=== PATIENT | female | born 1960 | race Caucasian/White ===

== ENCOUNTER 2017-07-11 14:09 | Emergency (ER) | payer BC ==
[2017-07-11 14:42] VITALS: BP 123/72
--- NOTE | 2017-07-11 16:36 | UC ---
Abdominal Pain Female HPI - HPI Summary HPI Summary: Patient presents with a past medical history of htn, hypercholesterolemia. She presents today with 6 day onset complaints of urinary uregency, frequency, and dysuria, with associated low back pain. She reports supra-public pain and cramping with urination. She states these symptoms are similiar to when she has had UTI. She denies fever,chills, flank pain, vomiting, diarrhea. - History of Current Complaint Chief Complaint: UCGU Stated Complaint: BURNING URINATION Time Seen by Provider: 07/11/17 16:03 Hx Obtained From: Patient Onset/Duration: Gradual Onset, Lasting Days Severity Initially: Moderate Severity Currently: Moderate Pain Intensity: 2 Location: Suprapubic Radiates: Yes Radiates to: Back Character: Cramping Aggravating Factor(s): Other: - urination Alleviating Factor(s): Spontaneous Resolution Associated Signs and Symptoms: Positive: Urinary Symptoms Simlar Episode/Dx as:: UTI Allergies/Adverse Reactions: Allergies Allergy/AdvReac Type Severity Reaction Status Date / Time MS Penicillins [Penicillins] Allergy Intermediate Hives Verified 07/07/16 10:50 MS Latex [Latex] Allergy Mild See Comment Verified 07/07/16 10:50 MS Sulfa Drugs [Sulfa Drugs] Allergy Mild Rash Verified 07/07/16 10:50 MS Codeine [Codeine] Allergy unsure Verified 07/07/16 10:50 MS Iodinated Contrast Media AdvReac Mild Nausea And Verified 07/07/16 10:50 [CONTRAST DYE] Vomiting Home Medications: Home Medications Metoprolol Tartrate TAB* [Lopressor TAB*] 25 mg PO DAILY 07/11/17 [History Confirmed 07/11/17] PMH/Surg Hx/FS Hx/Imm Hx Previously Healthy: Yes Endocrine History: Dyslipidemia Cardiovascular History: Hypertension - Surgical History Surgical History: Yes Surgery Procedure, Year, and Place: x 2, cholecystectomy, hernia repair-02/2012, partial hysterectomy, cancerous mass removed from left kidney - Family History Known Family History: Positive: Diabetes - Social History Occupation: Disabled Lives: With Family Alcohol Use: Rare Alcohol Amount: SOCIAL Substance Use Type: None Smoking Status (MU): Never Smoked Tobacco - Immunization History Most Recent Influenza Vaccination: 03/10/13 Most Recent Tetanus Shot: over 10 yrs Most Recent Pneumonia Vaccination: none Review of Systems Constitutional: Negative Skin: Negative Eyes: Negative ENT: Negative Respiratory: Negative Cardiovascular: Negative Gastrointestinal: Negative Genitourinary: Dysuria, Hematuria, Frequency, Urgency Motor: Negative Neurovascular: Negative Musculoskeletal: Negative Neurological: Negative Psychological: Negative Is Patient Immunocompromised?: No All Other Systems Reviewed And Are Negative: Yes Physical Exam Triage Information Reviewed: Yes Appearance: Well-Appearing Vital Signs: Initial Vital Signs Temp 97.4 F 07/11/17 14:35 Pulse 94 07/11/17 14:35 Resp 18 07/11/17 14:35 BP 123/72 07/11/17 14:35 Pulse Ox 96 07/11/17 14:35 Eye Exam: Normal ENT Exam: Normal Neck exam: Normal Neck: Positive: 1 Respiratory Exam: Normal Cardiovascular Exam: Normal Abdominal Exam: Normal Musculoskeletal Exam: Normal Neurological Exam: Normal Psychological Exam: Normal Skin Exam: Normal Abd Pain Female Course/Dx - Course Course Of Treatment: Patient presents with six day onset urinary complaints, UA was positive for UTI, patient was treated with Keflex 500 mg bid x 10 days. She was told that if her symptoms do not improve as anticipated she would need to follow up with her PCP. She verbalized understanding of and in agreement with the discharge plan. - Differential Dx/Diagnosis Differential Diagnosis: Urinary Tract Infection Provider Diagnoses: uti Discharge - Discharge Plan Condition: Stable Disposition: HOME Prescriptions: Cephalexin CAP* [Keflex CAP*] 500 mg PO BID #20 cap Patient Education Materials: Urinary Tract Infection in Women (DC) Referrals: Lisa Jane MD [Primary Care Provider] -
== END 2017-07-11 16:30 | disposition home or self-care (01) ==
LOC: UCEAST 14:09
DX: N39.0 Urinary tract infection, site not specified (principal); I10 Essential (primary) hypertension; E78.5 Hyperlipidemia, unspecified
CPT/HCPCS: 81003; 87077; 87086; 87186; 99212; G0463

== ENCOUNTER 2019-01-03 16:04 | Emergency (ER) | payer MEDICARE ==
[2019-01-03 16:13] VITALS: BP 156/87
--- NOTE | 2019-01-03 16:52 | UC ---
Head Injury HPI - HPI Summary HPI Summary: 58-year-old female who was getting out of her car and in order to avoid a tree branch she bent down and hit the left side of her forehead just at the hairline on the corner of her door. There is a small bruise present. There was no bleeding. She had no loss of consciousness but she just wanted it checked. Last tetanus is unknown. - History Of Current Complaint Chief Complaint: UCHeadInjury Stated Complaint: HEAD INJURY Time Seen by Provider: 01/03/19 16:24 Hx Obtained From: Patient ?: No Onset/Duration: Sudden Onset Severity Currently: Mild Severity Initially: Mild Pain Intensity: 3 Aggravating Factor(s): Nothing Alleviating Factor(s): Nothing Associated Signs And Symptoms: Positive: Negative - Allergies/Home Medications Allergies/Adverse Reactions: Allergies Allergy/AdvReac Type Severity Reaction Status Date / Time codeine Allergy Unknown Verified 01/03/19 16:19 Reaction Details Iodinated Contrast- Oral and Allergy Nausea And Verified 01/03/19 16:19 IV Dye Vomiting latex Allergy Rash And Verified 01/03/19 16:19 Itching Penicillins Allergy Hives Verified 01/03/19 16:19 Sulfa (Sulfonamide Allergy Rash Verified 01/03/19 16:19 Antibiotics) PMH/Surg Hx/FS Hx/Imm Hx Previously Healthy: Yes Cardiovascular History: Hypertension Cancer History: Other - Patient had a kidney mass removed not recently - Surgical History Surgical History: Yes Surgery Procedure, Year, and Place: x 2, cholecystectomy, hernia repair-02/2012, partial hysterectomy, cancerous mass removed from left kidney - Family History Known Family History: Positive: Diabetes - Social History Alcohol Use: Rare Alcohol Amount: SOCIAL Substance Use Type: None Smoking Status (MU): Never Smoked Tobacco - Immunization History Most Recent Influenza Vaccination: 03/10/13 Most Recent Tetanus Shot: over 10 yrs Most Recent Pneumonia Vaccination: none Review of Systems All Other Systems Reviewed And Are Negative: Yes Skin: Positive: Bruising - Extremely small flap bruise to the left forehead. Eyes: Positive: Other - Patient has ptosis to her right eyelid, which she has had for the past year. She states she has to make an appointment for surgery on the upper eyelid with her eye doctor. Her primary care provider has not researched the cause of the droopy lid. Is Patient Immunocompromised?: No Physical Exam Triage Information Reviewed: Yes Appearance: Well-Appearing, No Pain Distress, Well-Nourished Vital Signs: Initial Vital Signs Temp 98.4 F 01/03/19 16:07 Pulse 119 01/03/19 16:07 Resp 12 01/03/19 16:07 BP 156/87 01/03/19 16:07 Pulse Ox 98 01/03/19 16:07 Vital Signs Reviewed: Yes Eyes: Positive: Conjunctiva Clear, Other: - PERRLA, EOMI. Right eyelid ptosis. ENT: Positive: Hearing grossly normal, Pharynx normal, TMs normal, Uvula midline Neck exam: Normal Respiratory Exam: Normal Cardiovascular Exam: Normal Musculoskeletal Exam: Normal Musculoskeletal: Positive: Strength Intact, ROM Intact, Other: - Skull is intact and nontender. Neurological: Positive: Alert, Muscle Tone Normal - Cranial nerves II through XII are intact, good arm and leg strength against resistance, normal dystidiokinesis, good finger to nose bilaterally, Romberg is negative, good heel -to-toe forward and backward, good [id number] bilaterally. Psychological Exam: Normal Skin: Positive: Other - Very small bruise to the left forehead near the hairline , nontender on palpation. Head Injury Course/Dx - Course Course Of Treatment: The patient has a minor contusion to her forehead. She has a very small abrasion which did not bleed. She is allergic to latex therefore a Tdap immunization could not be given and she is to follow-up with her primary care provider regarding that. We had a long discussion regarding her right eyelid ptosis which she says has not been followed up with regard to possible ocular myasthenia gravis. I advised her to follow-up with her primary care provider and asked for referral to a neurologist for further evaluation of the right eyelid ptosis. The patient is agreeable to this plan of action. - Differential Dx/Diagnosis Provider Diagnosis: Contusion of head Discharge - Sign-Out/Discharge Documenting (check all that apply): Patient Departure All imaging exams completed and their final reports reviewed: No Studies - Discharge Plan Condition: Good Disposition: HOME Patient Education Materials: Concussion (ED) Referrals: Lisa Jane MD [Primary Care Provider] - Additional Instructions: You may apply ice to the sore area and take Tylenol for pain or headache. Go to the emergency room if you have any change in your normal mental status, if you develop any severe headache or if you start vomiting. Follow-up with your primary care provider as we discussed for other symptoms. You were not given a Tdap tetanus immunization due to your latex allergy however your to follow-up with your primary care provider regarding that. - Billing Disposition and Condition Condition: GOOD Disposition: Home
== END 2019-01-03 16:45 | disposition home or self-care (01) ==
LOC: UCEAST 16:04
DX: S00.93XA Contusion of unspecified part of head, initial encounter (principal); W22.8XXA Striking against or struck by other objects, initial encounter; Y92.9 Unspecified place or not applicable; Z88.2 Allergy status to sulfonamides
CPT/HCPCS: 99211; G0463

== ENCOUNTER 2019-01-20 01:01 | Emergency (ER) | payer MEDICARE ==
--- OUTSIDE RECORDS SUMMARY | 2019-01-20 01:31 | XMS REPORT | Continuity of Care Document ---
:1960 External Reference #:[id number] Author Name Ivelisse Hager NRakan (transmitted by agent of provider Page Mckee) Address [address] [place] [address], [place] [address] Care Team Providers Name Role Phone Nickie Amanda MD - Internal Medicine Care Team Information Software Engineering Project Manager [phone] Lisa Jane MD - Internal Care Team Information Software Engineering Project Manager [phone] Medicine Problems Active Problems Provider Date Hyperlipidemia Nickie Amanda M.D. Onset: 03/10/2013 History of malignant neoplasm of kidney Ivelisse Hager N.P. Onset: 09/19/2018 Essential hypertension Nickie Amanda M.D. Onset: 03/10/2013 Morbid obesity Nickie Amanda M.D. Onset: 03/10/2013 Rosacejacque Amanda M.D. Onset: 04/23/2013 Degeneration of lumbar intervertebral disc Kishore Rojas M.D. Onset: 2016 Localized, primary osteoarthritis Lisa Hinkle M.D. Onset: 01/29/2017 Social History Type Date Description Comments Sex Unknown ETOH Use Denies alcohol use Tobacco Use Start: Unknown End: Unknown Patient is a former smoker Recreational Drug Use Denies Drug Use Smoking Status Reviewed: 01/17/19 Patient is a former smoker Allergies, Adverse Reactions, Alerts Active Allergies Reaction Severity Comments Date Penicillins hives 03/10/2013 Latex Contact dermatitis Moderate 04/23/2013 IV Contrast 10/01/2013 Hydroxyzine Nausea and Vomiting Moderate 10/17/2013 Medications Active Medications SIG Qnty Indications Ordering Provider Date Sertraline HCL 1 by mouth every 30tabs F32.9 Ivelisse Hager, 01/17/2019 50mg day N.P. Tablets Metoprolol Succinate 1 by mouth every 90tabs Ivelisse Hager, 05/23/2017 ER day N.P. 25mg Tablets ER 24HR Diclofenac Sodium apply 2 grams to 100gm M25.561 Axel Carmonann, JOVANI 01/24/2017 1% affected area Gel twice daily Gabapentin take 1 capsule by 270caps M54.5 Ivelisse Hager, 01/01/2017 300mg mouth tid N.P. Capsules Tramadol HCL take 1 tablet by 120tabs Ivelisse Hager, 09/02/2015 50mg mouth three to N.P. Tablets four times daily as needed - maximum daily dose of 4 per day Lisinopril-Hydrochlo take 1 tablet by 90tabs Ivelisse Hager, 06/23/2014 rothiazide mouth one time N.P. 20-12.5mg daily Tablets Simvastatin take 1 tablet by 90tabs Ivelisse Hager, 40mg mouth at bedtime N.P. Tablets Latanoprost 1 drop both eyes Unknown 0.005% at night Solution Dorzolamide Unknown HCL/Timolol Maleate 22.3-6.8mg/ml Solution Brimonidine Tartrate 1 drop both eyes Unknown three times a day 0.15% Solution History Medications Fluoxetine HCL 1 by mouth 90caps F32.9 Ivelisse Hager, 08/02/2018 - 40mg every day N.P. 01/17/2019 Capsules Medications Administered in Office Medication SIG Qnty Indications Ordering Provider Date Depomedrol 40MG Lisa Hinkle M.D. 01/29/2017 Injection Immunizations CPT Code Status Date Vaccine Lot # [id number] Given 03/29/2018 Influenza Virus Vaccine, Quadrivalent, Split, Preservative Free [id number] Given 07/12/2017 Influenza Virus Vaccine, Quadrivalent, Split, Preservative Free [id number] Given 12/04/2016 Zoster (Zostavax) [id number] Given 03/29/2016 Flu Vaccine NOS 80074 Given 10/02/2014 Tdap - Tetanus/Diptheria/Acellular Pertussis [id number] Given 03/10/2013 Flu Vaccine Split Virus Preservative Free For [id number] Indiv 3Yr Older Vital Signs Date Vital Result Comment 01/17/2019 3:18pm Height 62 inches 5'2" Weight 293.00 lb Heart Rate 87 /min BP Systolic Sitting 148 mmHg Lue reg cuff in forearm BP Diastolic Sitting 80 mmHg Lue reg cuff in forearm O2 % BldC Oximetry 96 % BMI (Body Mass Index) 53.6 kg/m2 10/23/2018 4:27pm Height 62 inches 5'2" Weight 285.00 lb Heart Rate 91 /min BP Systolic 139 mmHg BP Diastolic 88 mmHg Body Temperature 97.8 F O2 % BldC Oximetry 97 % BMI (Body Mass Index) 52.1 kg/m2 Results Test Date Facility Test Result H/L Range Note Lipid Profile 01/13/2019 [facility] Triglycerides 209 mg/dL 1 (Trig/Chol/HDL) [address] [place] [address] [phone] Cholesterol 129 mg/dL 2 HDL Cholesterol 34.0 mg/dL 3 LDL Cholesterol 53 mg/dL 4 Comp Metabolic 01/13/2019 [facility] Sodium 140 mmol/L Normal 135-[address] [place] [address] [phone] Potassium 4.2 mmol/L Normal 3.5-5.0 Chloride 104 mmol/L Normal 101-111 Co2 Carbon Dioxide 27 mmol/L Normal 22-32 Anion Gap 9 mmol/L Normal 2-11 Glucose 109 mg/dL High 70-100 Blood Urea Nitrogen 16 mg/dL Normal 6-24 Creatinine 0.82 mg/dL Normal 0.51-0.95 BUN/Creatinine Ratio 19.5 Normal 8-20 Calcium 9.3 mg/dL Normal 8.6-10.3 Total Protein 6.7 g/dL Normal 6.4-8.9 Albumin 4.1 g/dL Normal 3.2-5.2 Globulin 2.6 g/dL Normal 2-4 Albumin/Globulin Ratio 1.6 Normal 1-3 Total Bilirubin 0.50 mg/dL Normal 0.2-1.0 Alkaline Phosphatase 60 U/L Normal 34-104 Alt 25 U/L Normal 7-52 Ast 20 U/L Normal 13-39 Egfr Non- 71.1 >60 Egfr 86.0 >60 5 Laboratory test 01/13/2019 [facility] Hemoglobin A1c 5.6 % Normal 4.0-5.6 [address] (Glyco HGB) [place] [address] [phone] 1 Desirable: <150 Borderline High: 150-199 High: 200-499 Very High: >500 2 Desirable: <200 Borderline High: 200-239 High: >239 3 Low: <40 Desirable: 40-60 High: >60 4 Desirable: <100 Near Optimal: 100-129 Borderline High: 130-159 High: 160-189 Very High: >189 5 Because ethnic data is not always readily available, this report includes an eGFR for both -Americans and non- Americans. The National Kidney Disease Education Program (NKDEP) does not endorse the use of the MDRD equation for patients that are not between the ages of 18 and 70, are , have extremes of body size, muscle mass, or nutritional status, or are non- or non-. According to the National Kidney Foundation, irrespective of diagnosis, the stage of the disease is based on the level of kidney function: Stage Description GFR(mL/min/1.73 m(2)) 1 Kidney damage with normal or decreased GFR 90 2 Kidney damage with mild decrease in GFR 60-89 3 Moderate decrease in GFR 30-59 4 Severe decrease in GFR 15-29 5 Kidney failure <15 (or dialysis) 6 Therapeutic target for the treatment of diabetes mellitus patients is <7% HBA1C, and in selective patients <6.0%. Please refer to [employer] diabetic care guidelines for further information. Procedures Date Code Description Status 01/09/2018 [id number] Mammogram Completed 01/04/2017 [id number] Mammogram Completed 07/06/2016 [id number] Mammogram Completed 01/03/2016 [id number] Mammogram Completed 06/29/2014 [id number] Mammogram Completed 03/14/2013 [id number] Mammogram Completed 07/12/2012 [id number] Colonoscopy Completed Medical Devices Description No Information Available Encounters Type Date Location Provider Dx Diagnosis Office Visit 10/23/2018 [facility] Ivelisse Hager, R60.0 Localized edema 4:20p [facility] - [facility] N.P. G60.9 Hereditary and idiopathic neuropathy, unspecified Office Visit 08/02/2018 DoNotUse [facility] Ivelisse Hager, G89.4 Chronic pain 10:20a [facility] N.P. syndrome F32.9 Major depressive disorder, single episode, unspecified Assessments Date Code Description Provider 01/17/2019 Z00.00 Encounter for general adult medical examination Ivelisse Hager, N.P. without abnormal findings 01/17/2019 Z12.31 Encounter for screening mammogram for malignant Ivelisse Hager, N.P. neoplasm of breast 01/17/2019 I10 Essential (primary) hypertension Ivelisse Bermudezn, N.P. 01/17/2019 E78.00 Pure hypercholesterolemia, unspecified Ivelisse Varn, N.P. 01/17/2019 R73.01 Impaired fasting glucose Ivelisse Hager, N.P. 01/17/2019 G89.4 Chronic pain syndrome Ivelisse Laran, N.P. 01/17/2019 F32.9 Major depressive disorder, single episode, Ivelisse Bermudezn, N.P. unspecified 10/23/2018 R60.0 Localized edema Ivelisse Hager, N.P. 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 unspecified 08/02/2018 G89.4 Chronic pain syndrome Ivelisse Varn, N.P. 08/02/2018 F32.9 Major depressive disorder, single episode, Ivelisse Bermudezn, N.P. unspecified Plan of Treatment Future Appointment(s):01/20/2020 9:20 am - Ivelisse Hager, N.P. [facility]:20 am - Ivelisse Hager, N.P. at [facility]/[facility] 10:00 am - Ivelisse Hager, N.P. at [facility] [place] [facility]/12[facility]2019 2:15 pm - Margaret Aguayo LCSW at [facility] Internal Medicine - [facility]01/17/2019 - Ivelisse Hager, N.P.Z00.00 Encounter for general adult medical examination without abnormal findingsComments:For your routine health maintenance: I urge you to try and get as much exercise as possible. Water therapy would most likely be the best tolerated.You need to be getting between 1,000 - 1,200 mg of Calcium in daily for bone health. The best way to supplement what you get in your diet is to drink Calcium fortified orange juice. If you take a Calcium supplement be sure it has Vitamin D in it to help absorption. You are due for a screening colonoscopy. I will send a referral to the GI specialist.Their office will contact you to arrange an appointment. Your Tetanus immunization is up to date. You received this in 2014. It is good for 10 years unless you have a major injury, then it is good for 5 years. There is a new shingles vaccine available, Shingrix. This is a series of 2 injections given 2 - 6 months apart. This is available at the pharmacy and I urge you to get this.Referral:Ayan Segura MD, [id number] Encounter for screening mammogram for malignant neoplasm of breastComments:I have ordered your routine screening mammogram. The imaging department will give you your results at the time of your visit. I encourage you to do self exams. If you should notice any masses or thickening, please give the office a call.I10 Essential (primary) hypertensionComments:For your high blood pressure: Continue with your current medication. I would like you to monitor your blood pressure at home. If your readings at home are consistently higher than 140/90, please call the office.Follow up:HTN f/u 6 mo Medicare Wellness Visit 1 year ( On Sun, , or Sun).E78.00 Pure hypercholesterolemia, unspecifiedComments:For your high cholesterol: Continue your current management. Your recent labs to check your cholesterol looked good.R73.01 Impaired fasting glucoseComments:Your blood glucose is slightly elevated. To help decrease your risk of getting diabetes I encourage you to try and reduce your weight. Regular aerobic exercise can helpful also.G89.4 Chronic pain syndromeComments:For your chronic pain continue with your current pain medication.F32.9 Major depressive disorder , single episode, unspecifiedNew Medication:Sertraline HCL 50 mg - 1 by mouth every dayComments:For your depression: Stop taking the Fluoxetine. I have prescribed Sertraline 50 mg for you. Take 1 tablet at bedtime.This may take a month toFollow up:I would like to see you in 1 month for follow up depression. Functional Status Description No Information Available Mental Status Description No Information Available Referrals Refer to Reason for Referral Status Appt Date Ayan Segura MD Screening colonoscopy Sent [address] [place] [address] [phone] Margaret Aguayo LCSW Patient with depression. Son has recently had Scheduled 08/14/2018 a psychotic break. Referred for therapy. [address] [place] [address] [phone]
[2019-01-20] MEDS ORDERED: NS 0.9% 1000 ML** 1,000 ML IV ONE (02:05)
[2019-01-20] MEDS ORDERED: Ondansetron INJ* 2 MG/ML VIAL IV ONE (02:05)
[2019-01-20] MEDS ORDERED: Morphine 4 MG/ML VIAL (1 ml) 4 MG/ML VIAL IV ONE (02:06)
--- NOTE | 2019-01-20 02:08 | ED ---
GI/ HPI - HPI Summary HPI Summary: Patient is a 58 y/o F w/ Hx of tomas morejon with complaints of bloating, dry heaving, and diarrhea. She is concerned for food poisoning, noting that she had a sandwich from [employer] two days ago. Patient had Sx onset 0300 yesterday, . Sx resolved at 0945 the same day and later resumed at 1900. She additionally notes that she had a subjective fever which has since resolved. Patient is on tramadol for chronic back pain. On triage, associated severity is rated 7/10. Home medications and allergies are reviewed. - History of Current Complaint Chief Complaint: EDAbdPain Time Seen by Provider: 01/20/19 01:55 Stated Complaint: VOMITING PER PT Hx Obtained From: Patient Onset/Duration: Started Hours Ago, Still Present Timing: Intermittent, Lasting Hours Current Severity: Severe Pain Intensity: 7 Associated Signs and Symptoms: Positive: Diarrhea, Fever, Other: - dry heaving, bloating - Allergy/Home Medications Allergies/Adverse Reactions: Allergies Allergy/AdvReac Type Severity Reaction Status Date / Time codeine Allergy Unknown Verified 01/20/19 01:06 Reaction Details Iodinated Contrast- Oral and Allergy Nausea And Verified 01/20/19 01:06 IV Dye Vomiting latex Allergy Rash And Verified 01/20/19 01:06 Itching Penicillins Allergy Hives Verified 01/20/19 01:06 Sulfa (Sulfonamide Allergy Rash Verified 01/20/19 01:06 Antibiotics) Home Medications: Home Medications Gabapentin CAP(*) [Neurontin 300 CAP(*)] 300 mg PO TID 01/20/19 [History Confirmed 01/20/19] Sertraline* [Zoloft*] 50 mg PO BEDTIME 01/20/19 [History Confirmed 01/20/19] PMH/Surg Hx/FS Hx/Imm Hx Endocrine/Hematology History: Denies: Hx Diabetes Cardiovascular History: Reports: Hx Coronary Artery Disease - HIGH CHOLESTEROL- ON MEDICATION FOR, Hx Hypercholesterolemia, Hx Hypertension, Other Cardiovascular Problems/Disorders - CAD Denies: Hx Pacemaker/ICD Respiratory History: Reports: Hx Seasonal Allergies GI History: Reports: Hx Gastroesophageal Reflux Disease - ON MEDICATION FOR, Hx Hiatal Hernia - HAD REPAIR FOR IN 1993 History: Reports: Other Problems/Disorders - 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- HAVING CT SCAN 03/11/13 Denies: Hx Renal Disease Musculoskeletal History: Reports: Hx Back Problems Sensory History: Reports: Hx Contacts or Glasses, Hx Glaucoma - ??-PRE Denies: Hx Hearing Aid Opthamlomology History: Reports: Hx Contacts or Glasses, Hx Glaucoma - ??-PRE Psychiatric History: Denies: Hx Panic Disorder - Cancer History Cancer Type, Location and Year: KIDNEY MASS REMOVED-+ ca Hx Chemotherapy: No Hx Radiation Therapy: No - Surgical History Surgery Procedure, Year, and Place: x 2, cholecystectomy, hernia repair-02/2012, partial hysterectomy, cancerous mass removed from left kidney Hx Anesthesia Reactions: Yes - NAUSEA Infectious Disease History: No Infectious Disease History: Reports: History Other Infectious Disease - SKIN "STAPH INFECTION" Denies: Traveled Outside the [place] in Last 30 Days - Family History Known Family History: Positive: Diabetes - Social History Alcohol Use: Rare Alcohol Amount: SOCIAL Substance Use Type: Reports: None Smoking Status (MU): Never Smoked Tobacco Review of Systems Positive: Fever - subjective, since resolved Gastrointestinal: Other - positive - bloating, dry heaving Positive: Diarrhea All Other Systems Reviewed And Are Negative: Yes Physical Exam - Summary Physical Exam Summary: VITAL SIGNS: Reviewed. GENERAL: Patient is a well-developed and morbidly obese female who is lying comfortable in the stretcher. Patient is not in any acute respiratory distress. She is pickwickian in appearance. HEAD AND FACE: No signs of trauma. No ecchymosis, hematomas or skull depressions. No sinus tenderness. EYES: PERRLA, EOMI x 2, No injected conjunctiva, no nystagmus. EARS: Hearing grossly intact. Ear canals and tympanic membranes are within normal limits. MOUTH: Oropharynx within normal limits. NECK: Supple, trachea is midline, no adenopathy, no JVD, no carotid bruit, no c- spine tenderness, neck with full ROM CHEST: Symmetric, no tenderness at palpation LUNGS: Clear to auscultation bilaterally. No wheezing or crackles. CVS: Regular rate and rhythm, S1 and S2 present, no murmurs or gallops appreciated. ABDOMEN: Soft, non-tender. Distended abdomen. No rebound no guarding, and no masses palpated. Bowel sounds are normal. EXTREMITIES: FROM in all major joints, no edema, no cyanosis or clubbing. NEURO: Alert and oriented x 3. No acute neurological deficits. Speech is normal and follows commands. SKIN: Dry and warm Triage Information Reviewed: Yes Vital Signs On Initial Exam: Initial Vitals Temp Pulse Resp BP Pulse Ox 97.6 F 91 20 186/95 96 01/20/19 01:02 01/20/19 01:02 01/20/19 01:02 01/20/19 01:02 01/20/19 01:02 Vital Signs Reviewed: Yes Diagnostics - Vital Signs Vital Signs Temp Pulse Resp BP Pulse Ox 01/20/19 01:02 97.6 F 91 20 186/95 96 - Laboratory Result Diagrams: 01/20/19 02:26 01/20/19 02:26 Lab Statement: Any lab studies that have been ordered have been reviewed, and results considered in the medical decision making process. - CT ABD/PEL CT CT Interpretation Completed By: Radiologist Summary of CT Findings: FINDINGS: Liver: Hepatomegaly measures 21 cm. There is hepatic steatosis. Gallbladder and bile ducts: Previous cholecystectomy. Pancreas: Normal. No ductal dilation. Spleen: Normal. No splenomegaly. Adrenals: Normal. No mass. Kidneys and ureters: 1.4 cm left renal cyst. Suspect previous partial left. nephrectomy. Poorly defined increased density at the superior aspect of the. left kidney is similar from prior examination. Stomach and bowel: Inferior ventral hernia containing small bowel without. obstruction. There are few additional small ventral hernias containing fat. Appendix: No evidence of appendicitis. Intraperitoneal space: Normal. No free air. No significant fluid collection. Vasculature: Normal. No abdominal aortic aneurysm. Lymph nodes: Normal. No enlarged lymph nodes. Bladder: Unremarkable as visualized. Reproductive: Previous hysterectomy. Bones/joints: There are degenerative changes involving the spine. Soft tissues: See Stomach And Bowel Finding. IMPRESSION: 1. No acute abnormality. 2. Inferior ventral hernia contains small bowel without obstruction. There are. a few additional small ventral hernias containing fat. 3. Additional findings as above. THIS REPORT WAS REVIEWED BY DR. LOZANO. SHERIU Course/Dx - Course Course Of Treatment: Patient is a 58 y/o F w/ Hx of tomas morejon with complaints of bloating, dry heaving, and diarrhea. She is concerned for food poisoning, noting that she had a sandwich from [employer] two days ago. Patient had Sx onset 0300 yesterday, 01/19/19. Sx resolved at 0945 the same day and later resumed at 1900. She additionally notes that she had a subjective fever which has since resolved. On physical exam, patient is noted to have distended abdomen and pickwickian appearance. She is morbidly obese. Labs showed WBC 12, RDW 16, absolute neuts 9.8, anion gap 13, BUN/creatinine ratio 20.3, glucose 158, amylase 25, lipase < 10. During ED course, patient received fluids, Zofran 8 mg IV and morphine 4 mg IV. ABD/PEL CT FINDINGS: Liver: Hepatomegaly measures 21 cm. There is hepatic steatosis. Gallbladder and bile ducts: Previous cholecystectomy. Pancreas: Normal. No ductal dilation. Spleen: Normal. No splenomegaly. Adrenals: Normal. No mass. Kidneys and ureters: 1.4 cm left renal cyst. Suspect previous partial left. nephrectomy. Poorly defined increased density at the superior aspect of the. left kidney is similar from prior examination. Stomach and bowel: Inferior ventral hernia containing small bowel without. obstruction. There are few additional small ventral hernias containing fat. Appendix: No evidence of appendicitis. Intraperitoneal space: Normal. No free air. No significant fluid collection. Vasculature: Normal. No abdominal aortic aneurysm. Lymph nodes: Normal. No enlarged lymph nodes. Bladder: Unremarkable as visualized. Reproductive: Previous hysterectomy. Bones/joints: There are degenerative changes involving the spine. Soft tissues : See Stomach And Bowel Finding. IMPRESSION: 1. No acute abnormality. 2. Inferior ventral hernia contains small bowel without obstruction. There are. a few additional small ventral hernias containing fat. 3. Additional findings as above. Patient was discharged to home and will follow up with PCP within three days. - Diagnoses Provider Diagnoses: Gastroenteritis Discharge - Sign-Out/Discharge Documenting (check all that apply): Patient Departure - discharge Patient Received Moderate/Deep Sedation with Procedure: No - Discharge Plan Condition: Stable Disposition: HOME Patient Education Materials: Gastroenteritis (ED) Referrals: Lisa Jane MD [Primary Care Provider] - 3 Days Additional Instructions: PLEASE RETURN TO THE ED IMMEDIATELY FOR WORSENING OR CONCERNING SYMPTOMS. FOLLOW UP WITH PRIMARY CARE PHYSICIAN WITHIN 3 DAYS. - Attestation Statements Document Initiated by Scribe: Yes Documenting Scribe: ASHLIE LOPEZ Provider For Whom Scribe is Documenting (Include Credential): ISADORA LOZANO MD Scribe Attestation: ASHLIE Mak, scribed for ISADORA LOZANO MD on 01/20/19 at 0502. Status of Scribe Document: Ready
[2019-01-20 02:35] LABS: ABS Basophils 0.1 10^3/ul (0-0.2); ABS Lymphocytes 1.4 10^3/ul (1.0-4.8); ABS Monocytes 0.6 10^3/ul (0-0.8); ABS Neutrophils 9.8 10^3/ul (1.5-7.7); Eosinophil % 0.4 %; Hematocrit 42 % (35-47); Hemoglobin 13.9 g/dL (12.0-16.0); Lymphocyte % 11.6 %; Mean Corpuscular HGB Conc 34 g/dL (31-36); Mean Corpuscular Hemoglobin 29 pg (27-31); Mean Corpuscular Volume 87 fL (80-97); Mean Platelet Volume 7.8 fL (7.4-10.4); Nucleated Red Blood Cells % 0.1; Platelet Count 273 10^3/uL (150-450); Red Blood Count 4.77 10^6 /uL (3.70-4.87); Red Cell Distribution Width 16 % (10-15)
[2019-01-20 02:53] LABS: ALT 23 U/L (7-52); AST 20 U/L (13-39); Albumin 4.3 g/dL (3.2-5.2); Albumin/Globulin Ratio 1.2 (1-3); Alkaline Phosphatase 65 U/L (34-104); Amylase 25 U/L (29-103); Anion Gap 13 mmol/L (2-11); BUN/Creatinine Ratio 20.3 (8-20); Blood Urea Nitrogen 16 mg/dL (6-24); C Reactive Protein 4.98 mg/L (<8.01); CO2 Carbon Dioxide 23 mmol/L (22-32); Calcium 9.8 mg/dL (8.6-10.3); Chloride 101 mmol/L (101-111); EGFR African American 89.8 (>60); EGFR Non-African American 74.2 (>60); Globulin 3.5 g/dL (2-4); Glucose 158 mg/dL (70-100); Potassium 3.7 mmol/L (3.5-5.0); Sodium 137 mmol/L (135-145); Total Protein 7.8 g/dL (6.4-8.9)
[2019-01-20 04:42] VITALS: BP 136/75
[2019-01-20 04:56] LABS: Urine Appearance Cloudy; Urine Bilirubin Negative (Negative); Urine Blood Negative (Negative); Urine Color Yellow; Urine Glucose Negative (Negative); Urine Ketones Negative (Negative); Urine Nitrite Negative (Negative); Urine Protein Negative (Negative); Urine Specific Gravity 1.025 (1.010-1.030); Urine Urobilinogen Negative (Negative)
== END 2019-01-20 05:00 | disposition home or self-care (01) ==
LOC: ED 01:01
DX: K52.9 Noninfective gastroenteritis and colitis, unspecified (principal); K43.9 Ventral hernia without obstruction or gangrene; K76.0 Fatty (change of) liver, not elsewhere classified; R16.0 Hepatomegaly, not elsewhere classified; N28.1 Cyst of kidney, acquired; E78.00 Pure hypercholesterolemia, unspecified; I25.10 Atherosclerotic heart disease of native coronary artery without angina pectoris; I10 Essential (primary) hypertension; K21.9 Gastro-esophageal reflux disease without esophagitis; G89.29 Other chronic pain; M54.9 Dorsalgia, unspecified; Z98.890 Other specified postprocedural states; Z90.49 Acquired absence of other specified parts of digestive tract; Z90.711 Acquired absence of uterus with remaining cervical stump; Z90.5 Acquired absence of kidney; Z88.5 Allergy status to narcotic agent; Z88.0 Allergy status to penicillin; Z88.2 Allergy status to sulfonamides; Z91.041 Radiographic dye allergy status; Z91.040 Latex allergy status
CPT/HCPCS: 36415; 74176; 80053; 81003; 82150; 83690; 83735; 85025; 86140; 96361; 96374; 96375; 99283; J2270; J2405